=== PATIENT | male | born 1965 | race Caucasian/White ===

== ENCOUNTER 2018-05-17 08:53 | Emergency (ER) | payer OTHER, SELFPAY ==
[2018-05-17 08:54] VITALS: BP 144/88; PULSE 67; RESP 18; TEMP 36.6; O2SAT 100; BMI 32.8
--- NOTE | 2018-05-17 09:14 | ED.VISSUMM ---
- ER Visit Summary Date of Service: 05/17/18 Chief Complaint: Slipped and fell on the ice injuring his right shoulder History of Present Illness: The patient is a 53 M hypothyroidism and reflux. Patient is on no blood thinners. Today he walked outside of his home was going down 2 steps and slipped and fell landing awkwardly on his right shoulder complaining of right shoulder pain. No LOC. Physical Examination: Vital signs are stable. Afebrile. Patient is awake and alert. HEENT exam pupils round reactive light. No signs of facial or scalp trauma. No swelling or tenderness. C-spine is nontender. Trachea midline. Normal range of motion to his neck. Lungs clear to auscultation bilaterally. Chest wall nontender. Heart regular rate and rhythm. No murmur. Abdomen is soft and nontender. Normal bowel sounds. No peritoneal signs. Pelvic girdle intact. No bony deformity. No shortening or rotation. He is able to flex and extend both hips, both knees both ankles and feet. Dorsi and plantar flexion intact. There is no bony deformity or tenderness to either lower extremity. Back is C-spine and lumbar spine and thoracic spine are all nontender. There is no signs of trauma to his back. Left upper extremity is unremarkable his right shoulder has diffuse pain on palpation. No gross bony deformity. Limited range of motion due to pain. Distal humerus, elbow, forearm, wrist and hand are nontender neurovascular intact. 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 Normal sensation. Neurologic exam is awake and alert with no focal motor deficits. Test Results: Right shoulder x-ray shows no acute abnormality. I did go over the films with the patient. 2 views. Emergency Department Course and Treatment: [place] x2 p.o. for pain Treatment Plan: Repeat exam he is doing better. He will be placed in a sling. [place] for pain. Motrin. Ice. Follow-up with not improving. Currently cannot do range of motion due to pain if that does not improve he will need evaluation for his rotator cuff which we discussed. Disposition: Discharge Impression: Acute slip and fall on the ice Acute right shoulder contusion This note was generated with [employer] dictation software. It may contain incorrect words, spelling, and punctuation that were not noted in review of the chart prior to signing ED Disposition - Plan for ED Patient: Chief Complaint: Fall Referrals: López Whitaker MD [Primary Care Provider] -
--- NOTE | 2018-05-17 09:18 | ED.DCSUM_ITS ---
- ER Visit Summary Date of Service: 05/17/18 Chief Complaint: Slipped and fell on the ice injuring his right shoulder History of Present Illness: The patient is a 53 M hypothyroidism and reflux. Patient is on no blood thinners. Today he walked outside of his home was going down 2 steps and slipped and fell landing awkwardly on his right shoulder complaining of right shoulder pain. No LOC. Physical Examination: Vital signs are stable. Afebrile. Patient is awake and alert. HEENT exam pupils round reactive light. No signs of facial or scalp trauma. No swelling or tenderness. C-spine is nontender. Trachea midline. Normal range of motion to his neck. Lungs clear to auscultation bilaterally. Chest wall nontender. Heart regular rate and rhythm. No murmur. Abdomen is soft and nontender. Normal bowel sounds. No peritoneal signs. Pelvic girdle intact. No bony deformity. No shortening or rotation. He is able to flex and extend both hips, both knees both ankles and feet. Dorsi and plantar flexion intact. There is no bony deformity or tenderness to either lower extremity. Back is C-spine and lumbar spine and thoracic spine are all nontender. There is no signs of trauma to his back. Left upper extremity is unremarkable his right shoulder has diffuse pain on palpation. No gross bony deformity. Limited range of motion due to pain. Distal humerus, elbow, forearm, wrist and hand are nontender neurovascular intact. He has normal stranner strength and radial pulse. Normal sensation. Neurologic exam is awake and alert with no focal motor deficits. Test Results: Right shoulder x-ray shows no acute abnormality. I did go over the films with the patient. 2 views. Emergency Department Course and Treatment: [place] x2 p.o. for pain Treatment Plan: Repeat exam he is doing better. He will be placed in a sling. [place] for pain. Motrin. Ice. Follow-up with not improving. Currently cannot do range of motion due to pain if that does not improve he will need evaluation for his rotator cuff which we discussed. Disposition: Discharge Impression: Acute slip and fall on the ice Acute right shoulder contusion This note was generated with [employer] dictation software. It may contain incorrect words, spelling, and punctuation that were not noted in review of the chart prior to signing ED Disposition - Plan for ED Patient: Chief Complaint: Fall Referrals: López Whitaker MD [Primary Care Provider] -
--- NOTE | 2018-05-17 09:22 | RAD_ITS ---
STUDY: X-RAY - RIGHT SHOULDER REASON FOR EXAM: Male, 53 years old. Pain following a fall. TECHNIQUE: 2 view(s) of the shoulder. COMPARISON: None. FINDINGS: Normal glenohumeral articulation. Normal acromioclavicular joint. Normal acromion. Normal humeral head and visualized proximal humerus. The soft tissue structures are unremarkable. Normal visualized pulmonary apex. RAD/Shoulder min 2 Views IMPRESSION: Normal x-ray examination of the shoulder. Electronically Signed: Hema Ivey MD at 9:44 EST Tel [phone], Service support ,
[2018-05-17] MEDS: HYDROcodone Bitartrate/Apap 5/325 Tablet PO (09:38)
--- NOTE | 2018-05-17 09:48 | ED.DEP ---
ED Disposition - Plan for ED Patient: Disposition: Home or Assisted Living Chief Complaint: Fall Instructions: ED Contusion Shoulder Prescriptions: Hydrocodone Bitart/Apap 5-325 [[place] 5MG-325MG] 1 - 2 tab PO Q4H PRN PRN #20 tab PRN Reason: Pain Referrals: López Whitaker MD [Primary Care Provider] - 10-14 Days if not better Additional Instructions: Ice to shoulder decrease pain and inflammation. Motrin for pain and inflammation. [place] for more severe pain. Follow-up if not improving or do not regain full range of motion in 10-14 days.
--- NOTE | 2018-05-17 09:51 | DCINST.ED_ITS ---
ED Disposition - Plan for ED Patient: Disposition: Home or Assisted Living Chief Complaint: Fall Instructions: ED Contusion Shoulder Prescriptions: Hydrocodone Bitart/Apap 5-325 [[place] 5MG-325MG] 1 - 2 tab PO Q4H PRN PRN #20 tab PRN Reason: Pain Referrals: López Whitaker MD [Primary Care Provider] - 10-14 Days if not better Additional Instructions: Ice to shoulder decrease pain and inflammation. Motrin for pain and inflammation. [place] for more severe pain. Follow-up if not improving or do not regain full range of motion in 10-14 days.
== END 2018-05-17 10:10 | disposition home or self-care (01) ==
PROVIDERS: Emergency Provider Emergency Medicine; Family Provider Family Medicine; PCP Family Medicine
DX: S40.011A Contusion of right shoulder, initial encounter (principal); W00.1XXA Fall from stairs and steps due to ice and snow, initial encounter; Y93.01 Activity, walking, marching and hiking; Y92.008 Other place in unspecified non-institutional (private) residence as the place of occurrence of the external cause; Y99.9 Unspecified external cause status; R19.7 Diarrhea, unspecified; E03.9 Hypothyroidism, unspecified; K21.9 Gastro-esophageal reflux disease without esophagitis; Z79.899 Other long term (current) drug therapy
CPT/HCPCS: 73030; 99283

== ENCOUNTER 2021-09-22 13:54 | Outpatient (CLI) | payer MEDICAID, SELFPAY | END 2021-09-22 23:59 | disposition home or self-care (01) | LOC: PAT 10-21 13:54 | PROVIDERS: PCP Family Medicine; Visit Provider Surgery | DX: Z20.828 Contact with and (suspected) exposure to other viral communicable diseases (principal) | CPT/HCPCS: 87426; C9803 ==

== ENCOUNTER 2024-05-13 16:42 | Emergency (ER) | payer MEDICARE, SELFPAY ==
[2024-05-13 16:43] VITALS: BP 144/91; PULSE 91; RESP 16; TEMP 36.8; O2SAT 98
[2024-05-13 17:43] LABS: Absolute Lymphocyte Count 1.44 X10^3/uL (0.83-4.51); Absolute Neutrophil Count 10.4 X10^3/uL (2.0-7.7); Basophil# 0.03 X10^3/uL; Basophil% 0.2 % (0-1); Eosinophil# 0.15 X10^3/uL; Eosinophils% 1.2 % (0-5); Hematocrit 49.4 % (40-54); Hemoglobin 16.5 g/dL (13.0-16.5); Lymphocyte # 1.44 X10^3/ul (0.83-4.51); Lymphocyte % 11.1 % (19-41); Mean Corp Hgb Conc 33.4 g/dL (32-36); Mean Corpuscular Hgb 27.6 pg (27.0-32.0); Mean Corpuscular Volume 82.6 fL (80-94); Mean Platelet Vol. 9.3 fl (6.2-12.0); Monocyte# 0.89 X10^3/uL; Monocyte% 6.9 % (0-10); NRBC Flagged by Analyzer 0 % (0-5); Neutrophil # 10.38 X10^3/uL (2.7-7.7); Neutrophil % 80.2 % (47-70); Platelet Count 219 K/mm3 (150-450); RBC Distribution Width CV 14.1 % (11.6-14.6); RBC Distribution Width SD 41.7 fl (35.1-43.9); Red Blood Count 5.98 M/mm3 (4.6-6.2); White Blood Count 12.9 K/mm3 (4.4-11.0)
[2024-05-13 17:58] LABS: Anion Gap 8 (5-15); BUN 15 mg/dL (7-18); BUN/Creat Ratio 14.4 RATIO (10-20); Calcium,Total 8.9 mg/dL (8.5-10.1); Chloride 107 mmol/L (98-107); Creatinine, Serum 1.04 mg/dL (0.70-1.30); EST Glomerular Filtration Rate 78 mL/min (>60); Est Glom Filt Rate - Afr Amer 94 mL/min (>60); Glucose 103 mg/dL (74-106); Potassium 4.2 mmol/L (3.5-5.1); Sodium Level 141 mmol/L (136-145); Uric Acid 9.6 mg/dL (3.5-7.2)
[2024-05-13 18:43] VITALS: BP 138/74; PULSE 78; RESP 16; TEMP 36.9; O2SAT 96
[2024-05-13] MEDS: Naproxen 500 MG Tablet PO (18:45)
== END 2024-05-13 18:58 | disposition home or self-care (01) ==
PROVIDERS: Emergency Provider Emergency Medicine; PCP Family Medicine; Visit Provider Emergency Medicine
DX: M10.071 Idiopathic gout, right ankle and foot (principal); X58.XXXA Exposure to other specified factors, initial encounter
CPT/HCPCS: 73610; 80048; 84550; 85025; 99284; A4216